=== PATIENT | male | born 1955 | race Two or more races ===

== ENCOUNTER 2025-07-17 10:03 | Outpatient (CLI) | payer OTHER | END 2025-07-17 10:05 | disposition home or self-care (01) | LOC: SONOGRAMA 10:03 | PROVIDERS: ATTEND Pathology Anatomic Pathology | DX: D34 Benign neoplasm of thyroid gland (principal); E07.89 Other specified disorders of thyroid; E04.1 Nontoxic single thyroid nodule ==